=== PATIENT | female | born 1985 | race African-American/Black ===

== ENCOUNTER → 2016-08-17 | Outpatient (CLI) | payer OTHER ==
[~2016-08-17] MED LIST: Colace PO; DOCUSATE SODIU100 MG PO; ENDOCET 5-3251 EACH PO; IBUPROFEN800 MG PO; Motrin PO; Percocet 5/325,Endoc PO
== END | disposition home or self-care (01) ==
LOC: CDC 11:27
DX: R07.9 Chest pain, unspecified (principal)
CPT/HCPCS: 93000